=== PATIENT | male | born 1970 | race Two or more races ===

== ENCOUNTER 2020-05-26 11:03 | Emergency (ER) | payer MEDICAID ==
[~2020-05-26] VITALS: Ht 180.3 cm; Wt 83.0 kg
[2020-05-26] MEDS ORDERED: IBUPROFEN 600MG TABLET PO ONE (11:30)
[2020-05-26 11:53] VITALS: BP 113/83
== END 2020-05-26 12:02 | disposition home or self-care (01) ==
LOC: ER 11:03
DX: J02.9 Acute pharyngitis, unspecified (principal); Z20.828 Contact with and (suspected) exposure to other viral communicable diseases; R05 Cough
CPT/HCPCS: 99283; C9803; U0003